=== PATIENT | male | born 1995 | race Caucasian/White ===

== ENCOUNTER → 2016-09-30 | Outpatient (CLI) | payer BC ==
[~2016-09-30] MED LIST: SERT1TAB71 PO
--- NOTE | 2016-09-30 13:41 | ECHOCARDIOGRAM REPORT ---
*NOTICE TO RECEIVING [employer]ENCY This information is strictly Confidential and protected under [place] law. [place] law prohibits you from making any further disclosure of this information unless further disclosure is expressly permitted by the written consent of the person to whom it pertains or is authorized by law. A general authorization for the release of medical or other information is not sufficient for this purpose. Hospital accepts no responsibility if the information is made available to any other person, INCLUDING THE PATIENT. Interpretation Summary * Name: FRANCINE GRIFFITH Study Date: 09/30/2016 12:24 PM BP: 148/69 mmHg * Patient Location: [facility] HR: 49 * : 1995 (M/d/yyyy) Gender: Male Height: 72 in * Age: 21 yrs Ethnicity: CA Weight: 270 lb * Ordering Physician: Karl Thompson * Performed By: Cailin Dean RDCS * * Reason For Study: SVT * BSA: 2.4 m2 * -- Conclusions -- * * Normal echocardiogram. * * The left ventricle is normal in size. * There is normal left ventricular wall thickness. * Left ventricular systolic function is normal. * Ejection Fraction = 55-60%. * The left ventricular wall motion is normal. * There is trace mitral regurgitation. * There is trace tricuspid regurgitation. * Right ventricular systolic pressure is normal. Procedure Details * A complete two-dimensional transthoracic echocardiogram was performed (2D, M-mode, Doppler and color flow Doppler). Left Ventricle * The left ventricle is normal in size. * There is normal left ventricular wall thickness. * Ejection Fraction = 55-60%. * Left ventricular systolic function is normal. * The left ventricular wall motion is normal. Right Ventricle * The right ventricle is normal in size and function. Atria * The left atrial size is normal. * Right atrial size is normal. * The interatrial septum is intact with no evidence for an atrial septal defect. Mitral Valve * The mitral valve is normal in structure and function. * There is trace mitral regurgitation. Tricuspid Valve * The tricuspid valve is normal in structure and function. * There is trace tricuspid regurgitation. * Right ventricular systolic pressure is normal. Aortic Valve * The aortic valve is normal in structure and function. * No hemodynamically significant valvular aortic stenosis. * No aortic regurgitation is present. Pulmonic Valve * The pulmonic valve is not well seen, but is grossly normal. * There is no pulmonic valvular regurgitation. Great Vessels * The aortic root is normal size. * Aortic arch of normal dimension. * No obvious dissection could be visualized. * The pulmonary artery is normal size. Pericardium/Pleural * There is no pericardial effusion. Great Vessels * Normal inferior vena cava diameter and respiratory variation suggests normal central venous pressure. MMode 2D Measurements and Calculations IVSd 0.97 cm IVSs 1.3 cm LVIDd 4.4 cm LVIDs 2.7 cm LVPWd 1.2 cm LVPWs 1.9 cm IVS/LVPW 0.84 FS 38.1 % EDV(Teich) 88.5 ml ESV(Teich) 27.8 ml EF(Teich) 68.6 % EDV(cubed) 86.3 ml ESV(cubed) 20.4 ml EF(cubed) 76.3 % % IVS thick 34.6 % % LVPW thick 65.9 % LV mass(C)d 163.1 grams LV mass(C)dI 67.4 grams/m\S\2 LV mass(C)s 160.8 grams LV mass(C)sI 66.4 grams/m\S\2 SV(Teich) 60.7 ml SI(Teich) 25.1 ml/m\S\2 SV(cubed) 65.8 ml SI(cubed) 27.2 ml/m\S\2 Ao root diam 2.9 cm Ao root area 6.5 cm\S\2 ACS 2.2 cm LA dimension 3.7 cm LA/Ao 1.3 LVAd ap4 32.7 cm\S\2 LVLd ap4 8.4 cm EDV(MOD-sp4) 110.0 ml EDV(sp4-el) 108.4 ml LVAs ap4 17.6 cm\S\2 LVLs ap4 7.2 cm ESV(MOD-sp4) 39.3 ml ESV(sp4-el) 36.4 ml EF(MOD-sp4) 64.3 % EF(sp4-el) 66.4 % LVAd ap2 31.7 cm\S\2 LVLd ap2 8.7 cm EDV(MOD-sp2) 100.3 ml EDV(sp2-el) 97.6 ml LVAs ap2 17.7 cm\S\2 LVLs ap2 6.9 cm ESV(MOD-sp2) 43.2 ml ESV(sp2-el) 38.5 ml EF(MOD-sp2) 56.9 % EF(sp2-el) 60.5 % LVLd %diff 3.9 % EDV(MOD-bp) 107.1 ml LVLs %diff -3.80 % ESV(MOD-bp) 42.0 ml EF(MOD-bp) 60.7 % SV(MOD-sp4) 70.7 ml SI(MOD-sp4) 29.2 ml/m\S\2 SV(MOD-sp2) 57.1 ml SI(MOD-sp2) 23.6 ml/m\S\2 SV(MOD-bp) 65.1 ml SI(MOD-bp) 26.9 ml/m\S\2 SV(sp4-el) 72.0 ml SI(sp4-el) 29.8 ml/m\S\2 SV(sp2-el) 59.0 ml SI(sp2-el) 24.4 ml/m\S\2 Doppler Measurements and Calculations MV E max prem 88.4 cm/sec MV A max prem 56.8 cm/sec MV E/A 1.6 MV dec time 0.36 sec Ao V2 max 122.6 cm/sec Ao max PG 6.0 mmHg Ao max PG (full) 2.9 mmHg LV V1 max PG 3.2 mmHg LV V1 max 88.8 cm/sec PA V2 max 150.3 cm/sec PA max PG 9.0 mmHg TR max prem 147.4 cm/sec
--- NOTE | 2016-09-30 17:11 | EXERCISE STRESS TEST ---
Exercise treadmill test to rule out dysrhythmia. Baseline ECG showed sinus bradycardia at 45 BPM with incomplete right bundle branch block and minor ST elevation consistent with repolarization variant. The patient exercised for 10 minutes on a Jamar protocol achieving a peak heart rate of 184 BPM (92% maximum predicted heart rate, 12 MET workload) with appropriate blood pressure response (peak BP 176/62). No symptoms reported. ECG showed no ST deviation, ectopy, or dysrhythmias. At the conclusion of the study, patient was asymptomatic and hemodynamically stable. IMPRESSION: 1. Negative exercise treadmill test for dysrhythmia or myocardial ischemia at 92% maximum predicted heart rate. 2. Appropriate hemodynamic response to exercise. 3. No symptoms. 4. Excellent exercise tolerance. [place] [employer] Functional Class I. 12 MET workload. MTDD
== END | disposition home or self-care (01) ==
LOC: C.CPL 11:48
PROVIDERS: ATTEND Internal Medicine
DX: I47.1 Supraventricular tachycardia (principal)